=== PATIENT | female | born 1935 | race African-American/Black ===

== ENCOUNTER → 2016-11-02 01:39 | Emergency (ER) | payer OTHER ==
[~2016-11-02 01:39] MED LIST: ACETAMINOPHEN; ALAVERT10 MG PO; ALDACTAZIDE PO; ALLEGRA PO; ALLOVERT; ANTIVERT; ANTIVERT PO; ASPIRIN; ASTELIN137 MCG INH; ASTEPRO137 MCG/0. NS; AVALIDE PO; AVAPRO PO; AVAPRO150 MG PO; BACTRIM DS TABL1 TAB PO; COMBIGAN EYE DRO5 ML OP; COUMADIN PO; COUMADIN2.5 MG PO; COUMADIN5 MG; COUMADIN5 MG PO; COZAAR; COZAAR25 MG; DARVOCET-N 1001 TAB PO; EYE; EYE DROP; FAMOTIDINE PO; HCTZ PO; HYDROCHLOROTH12.5 MG; HYDROCHLOROTHIA25 MG PO; KCL PO; LOPRESSOR PO; LOSARTAN POTAS100 MG PO; LUMIGAN OU; MACROBID 100 M100 MG PO; MACRODANTIN PO; METFORMIN HCL500 M1; METFORMIN HCL500 M2 PO; METFORMIN HCL500 M3 PO; METHAZOLAMIDE; METHIMAZOLE5 MG PO; METOPROLOL TAR25 MG PO; NASAL ALLERGY SPRAY; NITROFURANTOIN25 GM; NORCO 7.5/325 T1 TAB PO; NORTHYX5 MG; ONE DAILY1 TA1 PO; POTASSIUM; POTASSIUM CHLO10 MEQ PO; POTASSIUM99 M2; ROXICODONE5 M1 PO; TAPAZOLE10 MG PO; TESSALON200 MG PO; TOPROL XL; UROCIT K PO; VIT B 6 PO; ZOFRAN PO; [UNRECOGNIZED DRUG - OTHER] NS; [UNRECOGNIZED DRUG - OTHER] OP; [UNRECOGNIZED DRUG - OTHER] PO; [UNRECOGNIZED DRUG - REMARK]
== END | disposition left against medical advice (07) ==
LOC: CED 01:39
DX: Z53.21 Procedure and treatment not carried out due to patient leaving prior to being seen by health care provider (principal)